=== PATIENT | male | born 1985 | race Caucasian/White ===

== ENCOUNTER 2022-08-29 06:44 | Emergency (ER) | payer OTHER, MEDICAID, SELFPAY ==
[2022-08-29 06:59] VITALS: BP 121/52; BP 140/80; PULSE 64; PULSE 70; RESP 16; TEMP 37; O2SAT 99; BMI 23.6
--- NOTE | 2022-08-29 07:06 | ED_ITS ---
HPI - Back Pain/Injury General Chief Complaint: Back Pain/Injury Stated Complaint: back pain Time Seen by Provider: 08/29/22 06:53 Source: patient and EMS Mode of arrival: EMS Limitations: no limitations History of Present Illness HPI Narrative: 37 yo male with no known medical history here with complaints of mid back pain since with no known injury or trauma. No radiation of pain. No numbness/tingling in the groin/lower extremities. No fevers/chills. No bowel/bladder incontinence. Pain is worsened with movement. Had similar episode one year ago (had MRI reportedly which showed two herniated discs), pain improved with PT. Patient has tried prn ibuprofen, meloxicam with no improvement. Related Data Previous Rx's Medication Instructions Recorded cyclobenzaprine 10 mg tablet 10 mg PO TID PRN muscle spasm #15 08/29/22 tabs ibuprofen 800 mg tablet 800 mg PO Q8H PRN pain #30 tabs 08/29/22 Allergies Allergy/AdvReac Type Severity Reaction Status Date / Time No Known Allergies Allergy Verified 08/29/22 07:03 Review of Systems Review of Systems: Yes all other systems are reviewed and are negative Constitutional: Constitutional: Reports no additional constitutional complaints, Denies body ache(s), Denies chills, Denies fever(s), Denies headache(s) and Denies weakness Eyes: Eyes: Reports no additional eye complaints and Denies change in vision ENT: Reports system reviewed and no additional complaints, except as documented, Denies dizziness, Denies headache(s), Denies nasal congestion, Denies nasal discharge and Denies neck pain Cardiovascular: Cardiovascular: Reports no additional cardiovascular complaints, Denies chest pain, Denies leg edema and Denies dyspnea Respiratory: Respiratory: Reports no additional respiratory complaints, Denies cough and Denies dyspnea Gastrointestinal: Gastrointestinal: Reports no additional gastrointestinal complaints, Denies abdominal pain, Denies diarrhea, Denies nausea and Denies vomiting Genitourinary: Genitourinary: Denies urinary incontinence Musculoskeletal: Musculoskeletal: Reports no additional musculoskeletal complaints, Reports back pain, Denies arthralgias, Denies joint swelling, Denies neck pain, Denies numbness and Denies tingling Integumentary/Breasts: Skin/Breast: Reports system reviewed and no additional complaints, except as docu and Denies rash Neurologic: Reports system reviewed and no additional complaints, except as documented, Denies Abnormal speech present, Denies dizziness, Denies headache(s), Denies numbness, Denies tingling and Denies weakness PMFSH Past Medical History Attestation statement: The following information was validated with the patient. Source: old records reviewed and nursing notes reviewed Social History Social History Smoked in Last 30 Days: Yes Use of substances other than those prescribed or required for medical reasons: No Advance Directives: No Advance Directives Information Provided: Yes Physical Exam Vital Signs: Vital Signs: Last Vital Signs Temp 98.3 F 08/29/22 08:19 Pulse 64 08/29/22 08:19 Resp 16 08/29/22 08:19 BP 126/59 L 08/29/22 08:19 Pulse Ox 99 08/29/22 08:19 O2 Del Method Room Air 08/29/22 08:19 BMI result Body Mass Index 23.6 Const: General: cooperative, healthy appearing, comfortable and no acute distress Orientation/consciousness: patient oriented x3 Limitations: no limitations HEENT: Head: Yes normal to inspection Ears: hearing grossly normal bilaterally General nose exam: Normal external nose present Face and sinus: Yes normal facial exam Mouth: Normal oral and palatal mucosa present Throat: Yes posterior oropharynx normal Eyes: General: appearance normal, both eyes and all related structures Pupils: Equal, round and reactive pupils present Neck: Neck: Yes normal visual inspection Chest: Chest palpation & inspection: normal inspection of the chest Resp: Effort & Inspection: normal respiratory effort Auscultation: clear to auscultation bilaterally Cardio: Rate: regular rate Rhythm: regular rhythm Peripheral pulses: Peripheral pulses 2+ throughout GI: Inspection: Yes normal to inspection Palpation (GI): Soft to palpation and nontender Auscultation: normal bowel sounds Back/Spine/Pelvis: Other: Unable to illicit tenderness on palpation Worsened with flexion/extension of the lumbar spine. Thoracic/Lumbar Spine: thoracic and lumbar spine normal to inspection Skin: General skin exam: no rashes or lesions noted Neuro: Other: Straight leg raise normal General: patient oriented x3, no focal motor deficits and normal sensation to monofilament Cranial nerves: Yes Equal, round and reactive pupils present Cognition (Neuro): normal cognition Speech: No Abnormal speech present Gait exam (Neuro): Normal gait present Motor exam (neuro): 5/5 motor strength present throughout Sensory Exam: Normal double simultaneous stimulation for sensation Deep tendon reflexes (DTR's): Right patellar reflex intensity grade: 2+ and Left patellar reflex intensity grade: 2+ Extrem: General: Yes normal to inspection Course Course Course Narrative: 0845-Pain well controlled. Patient able to get up and ambulate in the room with steady gait. Plan for discharge home with NSAID, muscle relaxant. Reviewed worrisome signs/symptoms with patient and when to seek additional care. Comfortable with discharge home. Medications Administered Discontinued Medications Generic Name Dose Route Start Last Admin Trade Name Freq PRN Reason Stop Dose Admin Cyclobenzaprine HCl 10 mg 08/29/22 07:18 08/29/22 07:33 Cyclobenzaprine Hcl 10 Mg Tablet PO 08/29/22 07:19 10 mg ONCE ONE Administration Ketorolac Tromethamine 60 mg 08/29/22 07:18 08/29/22 07:33 Ketorolac Tromethamine 60 Mg/2 Ml Vial IM 08/29/22 07:19 60 mg ONCE ONE Administration Medical Decision Making Medical Decision Making [facility] Narrative: 37 yo male who presents to the ER w/ atraumatic mid back pain Since Unrelieved with NSAIDs at home. No overt neurological deficits or red flag symptom. Likely lumbar radiculopathy or Muscle spasm Will give Toradol IM and Flexeril and reassess Differential Diagnosis Differential Diagnoses: The differential diagnosis associated with the presentation includes lumbar radiculopathy Low concern for renal colic, pyelonephritis, AAA, cord compression/caude equina, epidural abscess, fracture Independent Historian Clinical information obtained from an independent historian. History obtained from or confirmed by: EMS Clinical information obtained from EMS and confirmed with patient Tests considered The following testing was considered but not selected: No need for x-ray as there was no trauma to suggest fracture No need for emergent MRI with normal neuro exam Prescription Management I considered prescription management with: Pain Medication Pain well controlled with NSAID/muscle relaxant-no need for escalation of analgesua Discharge Plan Discharge Clinical Impression: Lumbar radiculopathy Patient Disposition: Home, Self-Care Instructions: Lumbar Radiculopathy (ED), Lower Back Exercises (ED) Additional Instructions: Return for incontinence of urine/stool, numbness in the groin, fever >100.4, weakness in the lower extremities Heat or ice to the back No heavy lifting Gentle stretching Follow-up with your PCP for continued symptoms Prescriptions: New ibuprofen 800 mg tablet 800 mg PO Q8H PRN (Reason: pain) Qty: 30 0RF cyclobenzaprine 10 mg tablet 10 mg PO TID PRN (Reason: muscle spasm) Qty: 15 0RF Referrals: Physician,Unknown J [Primary Care Provider] - 1 week Stand Alone Forms: Work/School Release Interventions: ED Discharge Assessment Last Done: 08/29/22 08:49 Discharge Date/Time: 08/29/22 08:50
[2022-08-29] MEDS: Ketorolac Tromethamine 60 MG/2 ML VIAL IM (07:33)
[2022-08-29] MEDS: Cyclobenzaprine HCl 10 MG TABLET PO (07:33)
--- NOTE | 2022-08-29 07:35 | PC.NURSE ---
Pt medicated as charted
[2022-08-29 08:19] VITALS: BP 126/59; PULSE 64; RESP 16; TEMP 36.8; O2SAT 99
== END 2022-08-29 08:50 | disposition home or self-care (01) ==
PROVIDERS: Emergency Provider Student in an Organized Health Care Education/Training Program
DX: M54.16 Radiculopathy, lumbar region (principal); M54.50 Low back pain, unspecified
CPT/HCPCS: 96372; 99284; J1885

== ENCOUNTER 2024-10-23 15:19 | Outpatient (AMB) | payer OTHER, SELFPAY ==
--- NOTE | 2024-10-23 15:41 | A.OFFPC_ITS ---
Vital Signs 10/23/24 15:43 Height 5 ft 8.9 in Weight 180 lb BMI 26.7 BP 123/59 L Blood Pressure Location Rt brachial Position Sitting Respiration 14 Pulse 77 Pulse Source Pulse Oximeter Temp 98.1 F Temp Source Temporal Artery Scan Pulse Oximetry (%) 97 Oxygen Delivery Method Room Air Intake Visit Reasons: Establish Care Afterschool Required: No Accompanied by: Self / Same As Patient Allergies No Known Allergies Allergy (Verified 10/23/24 15:51) Medication List - Last Reconciled 10/23/24 by Divya Rincon PA-C No Known Home Meds Tobacco use date assessed: 10/23/24 Dental Screening Dental Screen Date: 10/23/24 Did you have a dental visit in the last 12 months?: Yes Did you have a dental problem in the last 6 months where you did not have access to dental care?: No Was dental information given to patient?: Patient has dentist HPI Establish Care HPI Details The patient is a 39-year-old male presenting with shoulder pain and for a new patient appointment. The patient reports a history of smoking, having smoked a pack a day for approximately 20 years before quitting two years ago. He acknowledges the need for future lung cancer screening due to his smoking history. The patient has experienced shoulder pain, initially diagnosed as bursitis at an urgent care facility. Despite completing a course of anti-inflammatory medication, the pain persisted, raising concerns about potential ligament damage. An x-ray was performed, and a referral for an MRI was recommended to further evaluate the condition. The patient also reports intermittent abdominal pain, described as a bulge in the abdominal region. He denies any significant pain associated with alcohol consumption or fatty foods. An abdominal ultrasound has been ordered to assess the gallbladder and liver. Social History - Employment: Previously worked in a [employer] for three years, currently unemployed due to layoff - Family status: , with two sons aged 11 and 8 - Substance use: History of smoking, carlos alberto t two years ago [facility] Medical History (Updated 10/23/24 @ 16:31 by Divya Rincon PA-C) Preventative health care History of smoking Abdominal pain Right shoulder injury Family History Father No problems noted. Mother No problems noted. Social History Housing: House Alcohol intake: current Alcohol intake frequency: a few times a week Patient Tobacco Use Status: Former Tobacco user service: No Current occupational status: unemployed Cognitive needs: No Hearing needs: No Vision needs: No Questionnaire PHQ-9 Over the last 2 weeks, how often have you been bothered by any of the following problems? 1. Little interest or pleasure in doing things: not at all 2. Feeling down, depressed, or hopeless: not at all 3. Trouble falling or staying asleep, or sleeping too much: not at all 4. Feeling tired or having little energy: not at all 5. Poor appetite or overeating: not at all 6. Feeling bad about yourself - or that you are a failure or have let yourself or your family down: not at all 7. Trouble concentrating on things, such as reading the newspaper or watching television: not at all 8. Moving or speaking so slowly that other people could have noticed. Or the opposite - being so fidgety or restless that you have been moving around a lot more than usual: not at all 9. Thoughts that you would be better off or of hurting yourself in some way: not at all Total score: 0 Depression Screening Interpretation: Negative Depression Screening Done: Yes 12531 - PHQ-9 Billing: Yes Source: Developed by Drs. Darrin Gallegos, Roshni Martinez, Enrique Rivas and colleagues, with an educational geraldine from [employer]. Thrive Questionnaire Date Thrive assessed: 10/23/24 I am a: Patient What is your living situation today?: I have a steady place to live Within the past 12 months, did the food you bought not last and you didn't have the money to get more?: Never true Within the past 12 months, did you worry whether your food would run out before you got money to buy more?: Never true Do you have trouble paying for medicines?: No Do you have trouble getting transportation to medical appointments?: No Do you have trouble paying your heating and electricity bill?: No Do you have trouble taking care of your child, family member or friend?: No Do you have trouble with day-to-day activities such as bathing, preparing meals, shopping, managing finances, etc.?: No Are you currently unemployed and looking for a job?: No Are you interested in more education?: No Please select the resources that you would like help with: None THRIVE Score: 0 AUDIT C Alcohol Use Questionnaire (AUDIT-C) 1. How often do you have a drink containing alcohol?: 2-3 times a week 2. How many drinks containing alcohol do you have on a typical day when you are drinking?: 1 or 2 3. How often do you have six or more drinks on one occasion?: Never Total Score: 3 Score Reviewed/Action Taken: No RACHID-7 AMB Questionnaire RACHID-7 Date RACHID - 7 assessed: 10/23/24 Feeling nervous, anxious, or on edge: 0 = Not at all Not being able to stop or control worryin = Not at all Worrying too much about different things: 0 = Not at all Trouble relaxin = Not at all Being so restless that it is hard to sit still: 0 = Not at all Becoming easily annoyed or irritable: 0 = Not at all Feeling afraid as if something awful might happen: 0 = Not at all Total RACHID-7 score (0-4 normal; 5-9 mild; 10-14 moderate; 15-21 severe): 0 Source: Developed by Drs. Darrin Gallegos, Roshni Martinez, Enrique Rivas and colleagues, with an educational geraldine from [employer]. RACHID-7 Assessment Billing RACHID-7 Assessment Tool: RACHID-7 Assessment 46831 Review of Systems Const Details: - General: Denies fatigue, weight loss, or fever - Cardiovascular: Denies chest pain or palpitations - Respiratory: Denies dyspnea or cough - Gastrointestinal: Reports intermittent abdominal pain, denies nausea, vomiting, or changes in bowel habits - Musculoskeletal: Reports shoulder pain, denies joint swelling or stiffness - Neurological: Denies headaches or dizziness All systems reviewed & are unremarkable except as noted in HPI and below Physical exam (Primary Care) Vital Signs: Last Vital Signs Temp 98.1 F 10/23/24 15:43 Pulse 77 10/23/24 15:43 Resp 14 10/23/24 15:43 BP 123/59 L 10/23/24 15:43 Pulse Ox 97 10/23/24 15:43 Oxygen Delivery Method Room Air 10/23/24 15:43 Care Plan Goal for BP management: <140/90 at Goal BMI result Body Mass Index 26.7 BMI Assessment/Plan discussion: High BMI High, discussed plan: lifestyle, weight reduction, dietary, physical activity, alcohol moderation and other Tobacco/Smoking Status: Tobacco use Status Tobacco use date assessed 10/23/24 10/23/24 15:48 Patient Tobacco Use Status Former Tobacco user 10/23/24 15:48 PHQ-9: PHQ-9 Score PHQ-9: Total score 0 10/23/24 15:48 Depression Screening Interpretation: Negative Thrive Assessment: Date of Thrive Assessment Date Thrive assessed 10/23/24 10/23/24 15:48 Const Other: Appearance: Alert. Oriented X3. No acute distress. Head: Normal external exam. Normocephalic. Atraumatic. Eyes: Pupils are equal, round, and reactive to light. Extraocular movements intact. Conjunctiva and sclera normal. Eyelids normal. Ears: External auditory canal normal. Tympanic membranes normal. Throat: Pharynx normal. Uvula midline. Moist mucous membranes. Neck: Normal inspection. Neck supple. Full range of motion. No adenopathy. Thyroid Normal. No meningeal signs. No neck mass noted. Cardiovascular: Normal heart rate and rhythm. Heart sound normal. No murmurs noted. Pulses normal throughout. Respiratory: No respiratory distress. Painless inspiration. Breath sounds normal. No wheezes/rales/rhonchi noted. Chest nontender. No accessory muscle usage noted or decreased air movement noted. Abdomen: Soft and nontender. Bowel sounds normal in all 4 quadrants. No distention noted. No organomegaly noted. No visible injury noted. Reports occasional pain in the middle of the abdomen, with a noticeable bulge. Back: No costovertebral angle tenderness. Full range of motion noted. Skin: Skin warm and dry. Normal skin color. Normal skin turgor. No rashes/lesions/lacerations noted. Extremities: No lower extremity edema. Extremities exhibit normal range of motion. Reports right shoulder pain, possibly bursitis, with limited motion in certain directions. Neuro: Oriented X 3. No motor deficit. No sensory deficit. Reflexes normal. Coding Level of Care Code New Pt Level 4 (38886) Complex EM visit Add On G2211 Diagnoses Right shoulder injury S49.91XA History of smoking Z87.891 [facility] health care Z00.00 Abdominal pain R10.9 Additional Codes PHQ-9 - 42758 - PHQ-9 Billing: Yes ([id number]) RACHID-7 Assessment Billing - RACHID-7 Assessment Tool: RACHID-7 Assessment 07886 ([id number]) Assessment & Plan Assessment & Plan (1) Right shoulder injury: Code(s): S49.91XA - Unspecified injury of right shoulder and upper arm, initial encounter Category: Medical Plan: The patient was initially diagnosed with bursitis at an urgent care facility and was prescribed anti-inflammatory medication. Despite completing the medication, the pain persisted, necessitating further evaluation. An x-ray was performed, and a referral for an MRI was recommended to assess potential ligament damage. Due to persistent shoulder pain, there is a suspicion of ligament damage. An MRI has been ordered to evaluate the extent of the damage, and a referral to orthopedics has been made. (2) History of smoking: Code(s): Z87.891 - Personal history of nicotine dependence Category: Social Hx Plan: The patient has a significant history of smoking, having smoked a pack a day for 20 years before quitting two years ago. Due to this history, future lung cancer screening will be considered. (3) Preventative health care: Code(s): Z00.00 - Encounter for general adult medical examination without abnormal findings Category: Medical Plan: A comprehensive blood work panel has been ordered to establish a baseline for the patient's health status. This includes a CBC, CMP, lipid profile, thyroid function tests, vitamin levels, and a PSA level for prostate cancer screening. (4) Abdominal pain: Code(s): R10.9 - Unspecified abdominal pain Category: Medical Plan: The patient reports intermittent abdominal pain with a palpable bulge noted during examination. An abdominal ultrasound has been ordered to evaluate the gallbladder and liver for potential causes. Plan Plan Patient was informed and verbally consented to the use of an ambient scribe for clinic note documentation during this visit. 1. Bursitis The patient was initially diagnosed with bursitis at an urgent care facility and was prescribed anti-inflammatory medication. Despite completing the medication, the pain persisted, necessitating further evaluation. An x-ray was performed, and a referral for an MRI was recommended to assess potential ligament damage. 2. Suspected Ligament Damage Due to persistent shoulder pain, there is a suspicion of ligament damage. An MRI has been ordered to evaluate the extent of the damage, and a referral to orthopedics has been made. 3. History Of Smoking The patient has a significant history of smoking, having smoked a pack a day for 20 years before quitting two years ago. Due to this history, future lung cancer screening will be considered. 4. Preventative Care A comprehensive blood work panel has been ordered to establish a baseline for the patient's health status. This includes a CBC, CMP, lipid profile, thyroid function tests, vitamin levels, and a PSA level for prostate cancer screening. 5. Abdominal Pain The patient reports intermittent abdominal pain with a palpable bulge noted during examination. An abdominal ultrasound has been ordered to evaluate the gallbladder and liver for potential causes. During the visit, we discussed the patient's shoulder pain, initially diagnosed as bursitis, and the need for further evaluation with an MRI to assess potential ligament damage. We also addressed the patient's history of smoking and the importance of future lung cancer screening. Preventative care measures were discussed, including comprehensive blood work and a PSA level for prostate cancer screening. An abdominal ultrasound was recommended to evaluate the cause of the patient's abdominal pain. Orders: Orders C Reactive Protein Today Z00.00 - Encounter for general adult medical examination without abnormal findings Comprehensive [place]. Panel Fast Today Z00.00 - Encounter for general adult medical examination without abnormal findings Hemoglobin A1c Today Z00.00 - Encounter for general adult medical examination without abnormal findings Lipid Panel Today Z00.00 - Encounter for general adult medical examination without abnormal findings Liver Panel Today Z00.00 - Encounter for general adult medical examination without abnormal findings Magnesium Today Z00.00 - Encounter for general adult medical examination without abnormal findings Vitamin D 25-OH Total Today Z00.00 - Encounter for general adult medical examination without abnormal findings Vitamin B12 and Folate Today Z00.00 - Encounter for general adult medical examination without abnormal findings PSA,Total (Free>4and<10) Today Z00.00 - Encounter for general adult medical examination without abnormal findings Complete Blood Count Auto Diff Today Z00.00 - Encounter for general adult medical examination without abnormal findings TSH reflex Free T4 Today Z00.00 - Encounter for general adult medical examination without abnormal findings MR shoulder RT wo con Today S49.91XA - Unspecified injury of right shoulder and upper arm, initial encounter US abdomen complete Today R10.9 - Unspecified abdominal pain Referrals Orthopedics Referral S49.91XA - Unspecified injury of right shoulder and upper arm, initial encounter Medications: Discontinued ibuprofen Discontinued Reason: Patient no longer taking 800 mg PO Q8H PRN 30 tabs 0RF pain cyclobenzaprine Discontinued Reason: Patient no longer taking 10 mg PO TID PRN 15 tabs 0RF muscle spasm Patient Instructions: - Schedule and complete the ordered blood work, ensuring to fast for 10-12 hours prior. - Await contact from the insurance or hospital regarding MRI approval and scheduling. - Monitor for any changes in symptoms, particularly abdominal pain, and report any significant changes. - Follow up in two months for a physical examination and review of test results.
[2024-10-23 15:43] VITALS: BP 123/59; PULSE 77; RESP 14; TEMP 36.7; O2SAT 97; BMI 26.7
== END 2024-10-23 16:11 | disposition home or self-care (01) ==
LOC: HO.HMCSH 15:19
PROVIDERS: Visit Provider Physician Assistant Medical
DX: S49.91XA Unspecified injury of right shoulder and upper arm, initial encounter (principal); Z87.891 Personal history of nicotine dependence; Z00.00 Encounter for general adult medical examination without abnormal findings; R10.9 Unspecified abdominal pain

== ENCOUNTER → 2024-10-23 15:19 | Outpatient (BNVA) | payer OTHER, SELFPAY | PROVIDERS: Visit Provider Physician Assistant Medical | DX: Z00.00 Encounter for general adult medical examination without abnormal findings (principal); M25.511 Pain in right shoulder; R10.9 Unspecified abdominal pain; S49.91XA Unspecified injury of right shoulder and upper arm, initial encounter; X58.XXXA Exposure to other specified factors, initial encounter; Y93.9 Activity, unspecified; Y92.9 Unspecified place or not applicable; Y99.9 Unspecified external cause status; Z87.891 Personal history of nicotine dependence | CPT/HCPCS: 96127; 99202 ==

== ENCOUNTER → 2024-11-07 18:00 | Outpatient (BNV) | payer OTHER, SELFPAY | PROVIDERS: PCP Physician Assistant Medical; Visit Provider Radiology Diagnostic Radiology | DX: M75.111 Incomplete rotator cuff tear or rupture of right shoulder, not specified as traumatic (principal) | CPT/HCPCS: 73221 ==

== ENCOUNTER 2024-11-07 18:01 | Outpatient (REF) | payer OTHER, SELFPAY ==
--- NOTE | ~2024-11-07 | MR_ITS ---
CLINICAL HISTORY: S49.91XA - Unspecified injury of right shoulder and upper arm, initial e... MR right shoulder without gadolinium Comparison: None provided Findings: No acute fractures. No pathologic bone lesions. No significant arthritic changes. No joint effusion. Partial tear of the supraspinatus tendon at its insertion on the greater tubercle. Infraspinatus, subscapularis and teres minor tendons are intact. No tears of the long head of biceps tendon. Anterior labral tear. IMPRESSION: 1. Partial tear of the supraspinatus tendon. 2. Anterior labral tear. This document has been electronically signed by: Evgeny Kamara MD on 11/09/2024 18:08:00
== END 2024-11-07 18:02 | disposition home or self-care (01) ==
LOC: HO.MRI 18:01
PROVIDERS: PCP Physician Assistant Medical; Visit Provider Physician Assistant Medical
DX: S49.91XA Unspecified injury of right shoulder and upper arm, initial encounter (principal)
CPT/HCPCS: 73221

== ENCOUNTER 2024-12-10 10:27 | Outpatient (REF) | payer OTHER, SELFPAY ==
[2024-12-10 10:40] LABS: MANUAL DIFF FLAG NO
[2024-12-10 11:55] LABS: Hematocrit 45.4 % (42.0-52.0); Hemoglobin 14.5 g/dl (14.0-18.0); Imm Gran Abs Auto 0.01 X10*3/uL (0.00-0.03); Imm Gran Pct Auto 0.2 % (0.0-0.4); Lymphocytes Absolute Auto 1.7 X10*3/uL (1.2-4.9); Mean Corpuscular HGB Conc 31.9 g/dl (31.0-36.0); Mean Corpuscular Hemoglobin 28.7 pg (27.0-33.0); Mean Corpuscular Volume 89.9 fL (80.0-98.0); NRBC Abs Auto 0.000 X10*3/uL (0.0-0.012); NRBC Pct Auto 0.0 /100WBC (0.0-0.2); Platelet Count 346 X10*3/uL (160-400); Red Blood Count 5.05 X10*6/uL (4.60-5.80); White Blood Count 5.8 X10*3/uL (4.8-10.8)
[2024-12-10 12:08] LABS: Alanine Aminotransferase 72 U/L (0-40); Albumin Level 5.3 g/dL (3.5-5.0); Alkaline Phosphatase 69 U/L (39-117); Aspartate Amino Transferase 66 U/L (5-37); Cholesterol 212 mg/dL (<200); HDL Cholesterol 51 mg/dL (>40); Magnesium 2.1 mg/dL (1.6-2.6); Total Protein 8.3 g/dL (6.5-8.0); Triglycerides 314 mg/dL (<150)
[2024-12-10 12:15] LABS: PSA,Total (Free>4and<10) 2.78 ng/mL (0.00-4.00)
[2024-12-10 12:29] LABS: Folate 8.9 ng/mL (> or = 4.0); Vitamin B12 600 pg/mL (200-900)
== END 2024-12-10 10:28 | disposition home or self-care (01) ==
LOC: HO.LAB 10:27
PROVIDERS: PCP Internal Medicine; Visit Provider Physician Assistant Medical
DX: Z00.00 Encounter for general adult medical examination without abnormal findings (principal); Z12.5 Encounter for screening for malignant neoplasm of prostate; Z13.29 Encounter for screening for other suspected endocrine disorder; Z13.1 Encounter for screening for diabetes mellitus; Z13.21 Encounter for screening for nutritional disorder; Z13.6 Encounter for screening for cardiovascular disorders
CPT/HCPCS: 36415; 80061; 80076; 82306; 82607; 82746; 83036; 83735; 84153; 84443; 85025; 86140

== ENCOUNTER 2024-12-13 09:41 | Outpatient (AMB) | payer OTHER, SELFPAY ==
[2024-12-13 09:47] VITALS: BMI 26.7
--- NOTE | 2024-12-13 09:47 | A.OFFVIS_ITS ---
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 He cannot recall any direct injury but believes that this was due to over use/ repetitive use. He takes ibuprofen PRN which does help mildly. He was using a diclofenac cream which was also temporarily helpful. IMPRESSION: 1. Partial tear of the supraspinatus tendon. 2. Anterior labral tear. 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 Patient reports that he was working at a [employer] shop for the last three years, he was layed off in june and since then he has had an onset of right shoulder pain. He cannot recall any direct injury but believes that this was due to over use/ repetitive use. He takes ibuprofen PRN which does help mildly. He was using a diclofenac cream which was also temporarily helpful. He has not done but did get an MRI and comes in today with feeling that he is not able to lift things overhead and pain with reaching. REPLACED BY [facility] Medical History Elevated ALT measurement Elevated AST (SGOT) Pure hypercholesterolemia, unspecified Hypertriglyceridemia Supraspinatus tendon tear Labral tear of shoulder Preventative health care History of smoking Abdominal pain Right shoulder injury Family History Father No problems noted. Mother No problems noted. Social History Housing: House Alcohol intake: current Alcohol intake frequency: a few times a week Patient Tobacco Use Status: Former Tobacco user service: No Current occupational status: unemployed Cognitive needs: No Hearing needs: No Vision needs: No Physical Exam Exam Exam: No acute distress 45/90/130/L5 Negative lift-off Mildly positive Covarrubias/Neer 4+/5 empty can on the right No weakness with external rotation at 0 Vital Signs: BMI result Body Mass Index 26.7 Results Reviewed Results Reviewed: I personally reviewed the MR images. IMPRESSION: 1. Partial tear of the supraspinatus tendon. 2. Anterior labral tear. Assessment & Plan Assessment & Plan (1) Partial thickness rotator cuff tear: Code(s): M75.110 - Incomplete rotator cuff tear or rupture of unspecified shoulder, not specified as traumatic Category: Medical Plan: This is a healthy 39-year-old gentleman with a partial-thickness supraspinatus tear. I reviewed the MRI and examined he has a weak in abduction that isolates to the supraspinatus. Otherwise normal exam. I recommend physical therapy. I discussed this with him. If that is not helpful I would recommend PRP. If that is not helpful we can discuss surgery. I recommend he return to see me after he has completed physical therapy. Orders: Orders PT Evaluation and Treatment 12/13/24 M75.110 - Incomplete rotator cuff tear or rupture of unspecified shoulder, not specified as traumatic Coding Level of Care Code Est Pt Level 3 (13998) Diagnoses Partial thickness rotator cuff tear M75.110
== END 2024-12-13 10:34 | disposition home or self-care (01) ==
LOC: HO.HOS 09:41
PROVIDERS: PCP Physician Assistant Medical; Visit Provider Orthopaedic Surgery
DX: M75.111 Incomplete rotator cuff tear or rupture of right shoulder, not specified as traumatic (principal)
CPT/HCPCS: 99203

== ENCOUNTER → 2024-12-13 09:41 | Outpatient (BNVA) | payer OTHER, SELFPAY | PROVIDERS: PCP Physician Assistant Medical; Visit Provider Orthopaedic Surgery | DX: M25.511 Pain in right shoulder (principal); M75.111 Incomplete rotator cuff tear or rupture of right shoulder, not specified as traumatic; Z87.891 Personal history of nicotine dependence | CPT/HCPCS: 99202 ==

== ENCOUNTER 2024-12-26 14:55 | Outpatient (REF) | payer OTHER, SELFPAY ==
[2024-12-26 18:02] LABS: Appearance Urine Clear; Glucose Urine UA Negative (Negative); PH 5.5 (5.0-9.0); Specific Gravity - Urine 1.025 (1.005-1.025)
== END 2024-12-26 14:56 | disposition home or self-care (01) ==
LOC: HO.LAB 14:55
PROVIDERS: PCP Physician Assistant Medical; Visit Provider Physician Assistant Medical
DX: Z00.00 Encounter for general adult medical examination without abnormal findings (principal); I10 Essential (primary) hypertension; Z13.31 Encounter for screening for depression; Z13.39 Encounter for screening examination for other mental health and behavioral disorders
CPT/HCPCS: 81003; 96127

== ENCOUNTER 2024-12-26 14:55 | Outpatient (AMB) | payer OTHER, SELFPAY ==
--- NOTE | 2024-12-26 11:49 | A.OFFPC_ITS ---
Vital Signs 12/26/24 15:00 Height 5 ft 8.9 in Weight 180 lb BMI 26.7 BP 125/58 L Blood Pressure Location Rt brachial Position Sitting Respiration 14 Pulse 77 Pulse Source Pulse Oximeter Temp 97.9 F Temp Source Temporal Artery Scan Pulse Oximetry (%) 96 Oxygen Delivery Method Room Air Intake Visit Reasons: Physical Medical Genetics Director Required: No Accompanied by: Self / Same As Patient Allergies No Known Allergies Allergy (Verified 12/26/24 15:15) Medication List - Last Reconciled 12/26/24 by Divya Rincon PA-C No Known Home Meds Tobacco use date assessed: 10/23/24 Dental Screening Dental Screen Date: 10/23/24 HPI Physical HPI Details The patient is a 39-year-old male presenting for an annual physical examination. He has a history of a partial tear of the right shoulder, confirmed on MRI, and is scheduled to begin physical therapy next week as recommended by Dr. Whyte. The patient notes that his shoulder has felt significantly better since he resumed going to the gym. The patient also reports a bulge on his stomach associated with pain, which is exacerbated during core exercises and after consuming greasy foods. An abdominal ultrasound has been scheduled for January to evaluate this issue. A recent non-fasting blood test revealed several abnormalities, including a hemoglobin A1c level indicative of prediabetes, with an average blood sugar of 114. His labs also showed elevated AST and ALT liver enzymes, hypercholesterolemia, and significantly high triglycerides at 314. The patient acknowledges a diet that includes pasta and bread. He reports alcohol consumption. He is not currently taking any medications and expresses a preference for managing his health through lifestyle changes before considering medications like statins. Social History - Substance Use: The patient reports alc ohol consumption and was counseled to reduce intake due to elevated triglycerides. - Exercise: The patient has recently sta rted going back to the gym. - Diet: The patient reports consuming pa sta and bread. [facility] Medical History (Updated 12/26/24 @ 16:38 by Divya Rincon PA-C) Prediabetes Annual physical exam Elevated ALT measurement Elevated AST (SGOT) Pure hypercholesterolemia, unspecified Hypertriglyceridemia Supraspinatus tendon tear Labral tear of shoulder Preventative health care History of smoking Abdominal pain Right shoulder injury Family History Father No problems noted. Mother No problems noted. Social History Housing: House Alcohol intake: current Alcohol intake frequency: a few times a week Patient Tobacco Use Status: Former Tobacco user service: No Current occupational status: unemployed Cognitive needs: No Hearing needs: No Vision needs: No Questionnaire PHQ-9 Over the last 2 weeks, how often have you been bothered by any of the following problems? 1. Little interest or pleasure in doing things: not at all 2. Feeling down, depressed, or hopeless: not at all 3. Trouble falling or staying asleep, or sleeping too much: not at all 4. Feeling tired or having little energy: not at all 5. Poor appetite or overeating: not at all 6. Feeling bad about yourself - or that you are a failure or have let yourself or your family down: not at all 7. Trouble concentrating on things, such as reading the newspaper or watching television: not at all 8. Moving or speaking so slowly that other people could have noticed. Or the opposite - being so fidgety or restless that you have been moving around a lot more than usual: not at all 9. Thoughts that you would be better off or of hurting yourself in some way: not at all Total score: 0 Depression Screening Interpretation: Negative Depression Screening Done: Yes 06128 - PHQ-9 Billing: Yes Source: Developed by Drs. Darrin Gallegos, Roshni Martinez, Enrique Rivas and colleagues, with an educational geraldine from [employer]. Thrive Questionnaire Date Thrive assessed: 10/23/24 I am a: Patient What is your living situation today?: I have a steady place to live Within the past 12 months, did the food you bought not last and you didn't have the money to get more?: Never true Within the past 12 months, did you worry whether your food would run out before you got money to buy more?: Never true Do you have trouble paying for medicines?: No Do you have trouble getting transportation to medical appointments?: No Do you have trouble paying your heating and electricity bill?: No Do you have trouble taking care of your child, family member or friend?: No Do you have trouble with day-to-day activities such as bathing, preparing meals, shopping, managing finances, etc.?: No Are you currently unemployed and looking for a job?: No Are you interested in more education?: No Please select the resources that you would like help with: None THRIVE Score: 0 AUDIT C Alcohol Use Questionnaire (AUDIT-C) 1. How often do you have a drink containing alcohol?: 2-3 times a week 2. How many drinks containing alcohol do you have on a typical day when you are drinking?: 1 or 2 3. How often do you have six or more drinks on one occasion?: Never Total Score: 3 Score Reviewed/Action Taken: No RACHID-7 AMB Questionnaire RACHID-7 Date RACHID - 7 assessed: 10/23/24 Feeling nervous, anxious, or on edge: 0 = Not at all Not being able to stop or control worryin = Not at all Worrying too much about different things: 0 = Not at all Trouble relaxin = Not at all Being so restless that it is hard to sit still: 0 = Not at all Becoming easily annoyed or irritable: 0 = Not at all Feeling afraid as if something awful might happen: 0 = Not at all Total RACHID-7 score (0-4 normal; 5-9 mild; 10-14 moderate; 15-21 severe): 0 Source: Developed by Drs. Darrin Gallegos, Roshni Martinez, Enrique Rivas and colleagues, with an educational geraldine from [employer]. RACHID-7 Assessment Billing RACHID-7 Assessment Tool: RACHID-7 Assessment 64987 Review of Systems Const Details: - General: Denies unintentional weight loss or recent falls. - Cardiovascular: Denies chest pain. - Respiratory: Denies shortness of breath. - Gastrointestinal: Reports an abdominal bulge and associated pain, which is exacerbated by greasy foods. Denies black or bloody stools. - Musculoskeletal: Reports right shoulder pain that has improved with exercise. - Extremities: Denies leg swelling. All systems reviewed & are unremarkable except as noted in HPI and below Physical exam (Primary Care) Vital Signs: Last Vital Signs Temp 97.9 F 12/26/24 15:00 Pulse 77 12/26/24 15:00 Resp 14 12/26/24 15:00 BP 125/58 L 12/26/24 15:00 Pulse Ox 96 12/26/24 15:00 Oxygen Delivery Method Room Air 12/26/24 15:00 Care Plan Goal for BP management: <140/90 at Goal BMI result Body Mass Index 26.7 BMI Assessment/Plan discussion: High BMI High, discussed plan: lifestyle, weight reduction, dietary, physical activity, alcohol moderation and other Tobacco/Smoking Status: Tobacco use Status Tobacco use date assessed 10/23/24 12/26/24 11:51 Patient Tobacco Use Status Former Tobacco user 12/26/24 11:51 PHQ-9: PHQ-9 Score PHQ-9: Total score 0 12/26/24 15:15 Depression Screening Interpretation: Negative Thrive Assessment: Date of Thrive Assessment Date Thrive assessed 10/23/24 12/26/24 11:51 Const Other: Appearance: Alert. Oriented X3. No acute distress. Head: Normal external exam. Normocephalic. Atraumatic. Eyes: Pupils are equal, round, and reactive to light. Extraocular movements intact. Conjunctiva and sclera normal. Eyelids normal. Ears: External auditory canal normal. Tympanic membranes normal. Throat: Pharynx normal. Uvula midline. Moist mucous membranes. Neck: Normal inspection. Neck supple. Full range of motion. No adenopathy. Thyroid Normal. No meningeal signs. No neck mass noted. Cardiovascular: Normal heart rate and rhythm. Heart sound normal. No murmurs noted. Pulses normal throughout. Respiratory: No respiratory distress. Painless inspiration. Breath sounds normal. No wheezes/rales/rhonchi noted. Chest nontender. No accessory muscle usage noted or decreased air movement noted. Abdomen: Soft and mild tenderness to the upper abdomen. Bowel sounds normal in all 4 quadrants. No distention noted. No organomegaly noted. Back: No costovertebral angle tenderness. Full range of motion noted. Skin: Skin warm and dry. Normal skin color. Normal skin turgor. No rashes/lesions/lacerations noted. Extremities: No lower extremity edema. Extremities exhibit normal range of motion. Extremities nontender. No leg swelling or calf tenderness noted. Neuro: Oriented X 3. No motor deficit. No sensory deficit. Reflexes normal. Results Reviewed Results Reviewed: - Lab Results (non-fasting): - Hemoglobin A1c: Elevated, consistent with prediabetes (average glucose 114 mg/dL). - Triglycerides: 314 mg/dL (High). - Cholesterol: High. - AST/ALT: Elevated at 66 U/L. - CBC: White blood cell count, red blood cell count, and platelet count were normal. - Magnesium: Normal. - Bilirubin: Normal. - Alkaline phosphatase: Normal. - Inflammatory marker: Negative. - Total protein: Slightly high. - Imaging: - Right Shoulder MRI: Showed a partial tear. Coding Level of Care Code Est Pt Level 4 (13492) Est Pt Prev Care 18-39y(21074) Diagnoses Annual physical exam Z00.00 Prediabetes R73.03 Hypertriglyceridemia E78.1 Pure hypercholesterolemia, unspecified E78.00 Right shoulder injury S49.91XA Partial thickness rotator cuff tear M75.110 Supraspinatus tendon tear M75.100 Labral tear of shoulder S43.439A Abdominal pain R10.9 Additional Codes RACHID-7 Assessment Billing - RACHID-7 Assessment Tool: RACHID-7 Assessment 49190 ([id number]) PHQ-9 - 85534 - PHQ-9 Billing: Yes ([id number]) Time Spent (min) 60 Assessment & Plan Assessment & Plan (1) Annual physical exam: Code(s): Z00.00 - Encounter for general adult medical examination without abnormal findings Category: Medical Plan: The patient presented for a routine annual wellness exam. A review of systems and physical exam were conducted. Recent non-fasting labs were reviewed, and counseling was provided regarding diet and lifestyle modifications. An in-office urinalysis will be performed today. The patient will follow up in 6 months, or sooner if test results are abnormal. (2) Prediabetes: Code(s): R73.03 - Prediabetes Category: Medical Plan: The patient's hemoglobin A1c is elevated, consistent with prediabetes. Counseling was provided on dietary modifications, specifically reducing the intake of carbohydrates such as pasta and bread. A urinalysis is planned to check for glucosuria. (3) Hypertriglyceridemia: Code(s): E78.1 - Pure hyperglyceridemia Category: Medical Plan: The patient's non-fasting labs showed elevated cholesterol and significantly high triglycerides at 314 mg/dL. The risks associated with hypertriglyceridemia, including pancreatitis, were discussed. The patient was counseled to reduce alcohol intake and avoid foods like banegas, sausage, and white bread. A decision to initiate statin therapy was deferred pending results of a repeat fasting lipid panel, which the patient will complete. (4) Pure hypercholesterolemia, unspecified: Code(s): E78.00 - Pure hypercholesterolemia, unspecified Category: Medical Plan: The patient's non-fasting labs showed elevated cholesterol and significantly high triglycerides at 314 mg/dL. The risks associated with hypertriglyceridemia, including pancreatitis, were discussed. The patient was counseled to reduce alcohol intake and avoid foods like banegas, sausage, and white bread. A decision to initiate statin therapy was deferred pending results of a repeat fasting lipid panel, which the patient will complete. (5) Right shoulder injury: Code(s): S49.91XA - Unspecified injury of right shoulder and upper arm, initial encounter Category: Medical Plan: The patient has a history of a partial rotator cuff tear of the right shoulder confirmed by MRI. He is scheduled to begin physical therapy next week, which is the current recommended plan of care. (6) Partial thickness rotator cuff tear: Code(s): M75.110 - Incomplete rotator cuff tear or rupture of unspecified shoulder, not specified as traumatic Category: Medical Plan: The patient has a history of a partial rotator cuff tear of the right shoulder confirmed by MRI. He is scheduled to begin physical therapy next week, which is the current recommended plan of care. (7) Supraspinatus tendon tear: Code(s): M75.100 - Unspecified rotator cuff tear or rupture of unspecified shoulder, not specified as traumatic Category: Medical Plan: The patient has a history of a partial rotator cuff tear of the right shoulder confirmed by MRI. He is scheduled to begin physical therapy next week, which is the current recommended plan of care. (8) Labral tear of shoulder: Code(s): S43.439A - Superior glenoid labrum lesion of unspecified shoulder, initial encou nter Category: Medical Plan: The patient has a history of a partial rotator cuff tear of the right shoulder confirmed by MRI. He is scheduled to begin physical therapy next week, which is the current recommended plan of care. (9) Abdominal pain: Code(s): R10.9 - Unspecified abdominal pain Category: Medical Plan: The patient reports abdominal pain and a palpable bulge, with symptoms worsening after consuming greasy foods, raising suspicion for gallbladder pathology. His elevated liver transaminases could also be related to this. An abdominal ultr asound is scheduled for January to further evaluate. It was explained that if symptomatic gallstones are found, a referral to general surgery for cholecystectomy would be necessary. The patient was instructed to go to the hospital for persistent or worsening pain. Plan Plan Patient was informed and verbally consented to the use of an ambient scribe for clinic note documentation during this visit. 1. Annual Physical Examination The patient presented for a routine annual wellness exam. A review of systems and physical exam were conducted. Recent non-fasting labs were reviewed, and counseling was provided regarding diet and lifestyle modifications. An in-office urinalysis will be performed today. The patient will follow up in 6 months, or sooner if test results are abnormal. 2. Prediabetes The patient's hemoglobin A1c is elevated, consistent with prediabetes. Counseling was provided on dietary modifications, specifically reducing the intake of carbohydrates such as pasta and bread. A urinalysis is planned to check for glucosuria. 3. Mixed Hyperlipidemia The patient's non-fasting labs showed elevated cholesterol and significantly high triglycerides at 314 mg/dL. The risks associated with hypertriglyceridemia, including pancreatitis, were discussed. The patient was counseled to reduce alcohol intake and avoid foods like banegas, sausage, and white bread. A decision to initiate statin therapy was deferred pending results of a repeat fasting lipid panel, which the patient will complete. 4. Right Shoulder Partial Rotator Cuff Tear The patient has a history of a partial rotator cuff tear of the right shoulder confirmed by MRI. He is scheduled to begin physical therapy next week, which is the current recommended plan of care. 5. Abdominal Pain The patient reports abdominal pain and a palpable bulge, with symptoms worsening after consuming greasy foods, raising suspicion for gallbladder pathology. His elevated liver transaminases could also be related to this. An abdominal ultrasound is scheduled for January to further evaluate. It was explained that if symptomatic gallstones are found, a referral to general surgery for cholecystectomy would be necessary. The patient was instructed to go to the hospital for persistent or worsening pain. I reviewed the patient's recent non-fasting lab results with him, highlighting the findings of prediabetes, elevated cholesterol, and significantly high triglycerides of 314 mg/dL. I counseled him on the importance of dietary changes, such as reducing pasta, bread, and high-fat foods, and decreasing alcohol intake to manage these conditions and lower his risk for pancreatitis. We discussed the abdominal pain, which worsens with greasy foods, and its potential connection to gallbladder disease, which could also explain his elevated liver enzymes. I explained that the scheduled abdominal ultrasound will help diagnose the issue and that symptomatic gallstones would likely require a general surgery referral for gallbladder removal. I advised him to go to the hospital if the pain becomes worse or persistent. Regarding the hyperlipidemia, we agreed to defer initiating statin therapy until a fasting lipid panel is completed, which he will do soon. I ordered non-fasting labs for kidney function and an in-office urinalysis. We will follow up in six months, but I will contact him sooner if any of the pending results are significantly abnormal. Orders: Orders Comprehensive Met. Panel Today Z00.00 - Encounter for general adult medical examination without abnormal findings Patient Instructions: - Go to the lab to have your blood drawn again. - You will need to fast (nothing to eat or drink except water for at least 8 hours) for the cholesterol test. - The test for your kidney function does not require fasting. - Provide a urine sample in the office today to check for any issues. - Your abdominal ultrasound is scheduled for January to investigate the bulge and pain in your stomach. - Continue with your plan to start physical therapy next week for your right shoulder. - Make changes to your diet to lower your blood sugar and triglycerides. - This includes eating less pasta, bread, banegas, sausage, hot dogs, and sugary drinks. - Reduce your alcohol intake. - If your abdominal pain becomes severe or does not go away, you must go to the hospital. - We plan to have a follow-up visit in six months, but I will call you if your new lab work or ultrasound results require earlier attention.
[2024-12-26 15:00] VITALS: BP 125/58; PULSE 77; RESP 14; TEMP 36.6; O2SAT 96; BMI 26.7
== END 2024-12-26 15:35 | disposition home or self-care (01) ==
LOC: HO.HMCSH 14:55
PROVIDERS: PCP Physician Assistant Medical; Visit Provider Physician Assistant Medical
DX: Z00.00 Encounter for general adult medical examination without abnormal findings (principal); R73.03 Prediabetes; E78.1 Pure hyperglyceridemia; E78.00 Pure hypercholesterolemia, unspecified; S49.91XA Unspecified injury of right shoulder and upper arm, initial encounter; M75.110 Incomplete rotator cuff tear or rupture of unspecified shoulder, not specified as traumatic; M75.100 Unspecified rotator cuff tear or rupture of unspecified shoulder, not specified as traumatic; S43.439A Superior glenoid labrum lesion of unspecified shoulder, initial encounter; R10.9 Unspecified abdominal pain

== ENCOUNTER 2024-12-27 10:25 | Outpatient (REF) | payer OTHER, SELFPAY ==
[2024-12-27 11:44] LABS: Alanine Aminotransferase 38 U/L (0-40); Albumin Level 5.4 g/dL (3.5-5.0); Alkaline Phosphatase 72 U/L (39-117); Anion Gap 13 (12-20); Aspartate Amino Transferase 30 U/L (5-37); Blood Urea Nitrogen 13 mg/dL (9-16); Calcium 9.9 mg/dL (8.4-10.2); Carbon Dioxide 30 mmol/L (22-29); Chloride 102 mmol/L (96-108); Cholesterol 254 mg/dL (<200); Estimated Glomerular Filt Rate > 60; HDL Cholesterol 54 mg/dL (>40); Potassium 4.5 mmol/L (3.3-5.1); Sodium 140 mmol/L (135-145); Total Protein 8.2 g/dL (6.5-8.0); Triglycerides 227 mg/dL (<150)
--- OUTSIDE RECORDS SUMMARY | 2024-12-27 12:48 | XMS_ITS | Encounter Summary ---
Author Organization [facility] Address [address] [place] [address] Care Team Providers Care Agility Instructor Name Role Phone Joyce Palmer MD Primary Care Provider [phone] Reason for Visit * Reason Onset Date Comments TEST RESULTS 01/02/2018 Encounter Details Date Type Department Care Team Description 01/02/2018 Telephone Adult Medicine [address] [address] Gisell Zayas PA-C TEST RESULTS Social History Tobacco Use Types Packs/Day Years Used Date Smoking Tobacco: Every Day Cigarettes 0.5 12 Last attempted to quit: 10/15/2013 Smokeless Tobacco: Never Comments:quit at age 28, the n restarted 8 months ago Alcohol Use Standard Drinks/Week Comments No 0 (1 standard drink = 0.6 oz pur e alcohol) socially 1-2 times monthly Sex Assigned at Date Recorded Not on file Job Start Date Occupation Industry Not on file Not on file Not on file documented as of this encounter Miscellaneous Notes * Telephone Encounter - Shanika Gregorio M.A. - 01/02/2018 1:07 PM EST Left message for pt to returned my call. [id number] * Telephone Encounter - Shanika Gregorio M.A. - 01/02/2018 1:07 PM EST ----- Message from Gsiell Zyaas PA-C sent at 01/02/2018 9:24 AM EST ----- Please call the patient. He is not immune to varicella. He will need 2 doses of live vaccine. Gisell Zayas PA-C documented in this encounter Plan of Treatment Not on file documented as of this encounter Visit Diagnoses Not on filedocumented in this encounter Care Teams Agility Instructor Relationship Specialty Start Date End Date Joyce Palmer MD [address] [place] [id number] PCP - General Internal Medicine 06/05/15 documented as of this encounter
--- OUTSIDE RECORDS SUMMARY | 2024-12-27 12:48 | XMS_ITS | Encounter Summary ---
Author Organization [facility] Address [address] [place] [address] Care Team Providers Care Soda Tester Name Role Phone Joyce Palmer MD Primary Care Provider [phone] Reason for Visit * Reason Onset Date Comments REFERRAL 12/07/2021 Encounter Details Date Type Department Care Team Description 12/07/2021 Telephone Adult Medicine [address] [address] Joyce Palmer MD [address] [place] [address] REFERRAL Social History Tobacco Use Types Packs/Day Years [...] encounter Miscellaneous Notes * Telephone Encounter - Ashley Clark - 12/07/2021 9:35 AM EDT The patient is requesting a referral to [facility] in [place] for back pain. Pls faxto [phone]. documented in this encounter Plan of Treatment Not on file documented as of this encounter Visit Diagnoses Not on filedocumented in this encounter Care Teams Soda Tester Relationship Specialty Start Date End Date Joyce Palmer MD [address] [place] [id number] PCP - General Internal Medicine 06/05/15 documented as of this encounter
== END 2024-12-27 10:26 | disposition home or self-care (01) ==
LOC: HO.LAB 10:25
PROVIDERS: PCP Internal Medicine; Visit Provider Physician Assistant Medical
DX: Z00.00 Encounter for general adult medical examination without abnormal findings (principal); Z13.6 Encounter for screening for cardiovascular disorders
CPT/HCPCS: 36415; 80053; 80061